=== PATIENT | female | born 1955 | race Caucasian/White ===

== ENCOUNTER 2019-07-16 18:06 | Emergency (ER) | payer OTHER ==
[~2019-07-16] VITALS: Ht 154.9 cm; Wt 90.7 kg
[~2019-07-16 18:06] MED LIST: ASA81BEC PO; AUGMENTIN 875875 MG PO; CELEXA20 MG PO; COLACE100 MG PO; HYDROCHLOROTH12.5 M2 PO; LEVOTHYROXIN0.137 M1 PO; LISINOPRIL40 MG PO; ONDANSETRON HCL4 M2 PO; SENNA S TABLET1 EACH PO; TOPROL XL25 MG PO; TRAMADOL 50 MG50 MG PO; TYLENOL325 MG PO; VENTOLIN HFA INH8 GM INH; ZOCOR40 MG PO
[2019-07-16] MEDS ORDERED: MOBIC15 MG PO (18:45)
[2019-07-16] MEDS ORDERED: CYCLOBENZAPRINE5 MG PO (18:45)
[2019-07-16 19:00] VITALS: BP 158/77
== END 2019-07-16 19:00 | disposition home or self-care (01) ==
LOC: ER 18:06
DX: S16.1XXA Strain of muscle, fascia and tendon at neck level, initial encounter (principal); M25.511 Pain in right shoulder; J45.909 Unspecified asthma, uncomplicated; I10 Essential (primary) hypertension; F17.210 Nicotine dependence, cigarettes, uncomplicated; Z88.5 Allergy status to narcotic agent; Z79.899 Other long term (current) drug therapy; Z79.82 Long term (current) use of aspirin; Z98.890 Other specified postprocedural states; V59.88XA Occupant (driver) (passenger) of pick-up truck or van injured in other specified transport accidents, initial encounter; Y93.89 Activity, other specified; Y92.413 State road as the place of occurrence of the external cause; Y99.9 Unspecified external cause status